=== PATIENT | male | born 1960 | race Caucasian/White ===

== ENCOUNTER 2021-12-15 14:18 | Observation (INO) | payer OTHER, MEDICARE ==
[~2021-12-15] VITALS: Ht 175.3 cm; Wt 110.8 kg
[2021-12-15 15:10] LABS: BUN/CREATININE RATIO 15 (0-10)
[2021-12-15 15:57] LABS: HEMOGLOBIN 14.2 gm/dl (14.0-17.5); RED BLOOD COUNT 5.39 M/UL (4.20-5.50); WHITE BLOOD COUNT 7.3 K/UL (4.5-11.0)
[2021-12-15] MEDS ORDERED: TRELEGY ELLIPT1 EACH INH (19:02)
[2021-12-15] MEDS ORDERED: SOTALOL80 MG PO (19:03)
[2021-12-15] MEDS ORDERED: ASPIRIN EC81 MG PO (19:04)
[2021-12-15] MEDS ORDERED: FLECAINIDE ACET50 MG PO (19:05)
[2021-12-15] MEDS ORDERED: SYMBICORT 16010.2 GM INH (19:05)
[2021-12-15] MEDS ORDERED: CARDIZEM30 MG PO (19:05)
[2021-12-15] MEDS ORDERED: ISOSORBIDE MONO60 MG PO (19:06)
[2021-12-15] MEDS ORDERED: PROTONIX40 MG PO (19:07)
[2021-12-15] MEDS ORDERED: NITROGLYCERIN0.4 MG SL (19:07)
[2021-12-15] MEDS ORDERED: ATORVASTATIN CA40 MG PO (19:08)
[2021-12-15] MEDS ORDERED: XARELTO20 MG PO (19:08)
[2021-12-16 02:19] LABS: HEMOGLOBIN 14.7 gm/dl (14.0-17.5); RED BLOOD COUNT 5.59 M/UL (4.20-5.50); WHITE BLOOD COUNT 7.5 K/UL (4.5-11.0)
[2021-12-16 03:27] LABS: BUN/CREATININE RATIO 12 (0-10)
== END 2021-12-16 14:06 | disposition home or self-care (01) ==
LOC: ER1 14:18 → PROG CARE 16:49 → CDU 16:49 → PROG CARE 16:49
PROVIDERS: Emergency Medicine; ADMIT Internal Medicine
DX: I48.21 Permanent atrial fibrillation (principal); I13.0 Hypertensive heart and chronic kidney disease with heart failure and stage 1 through stage 4 chronic kidney disease, or unspecified chronic kidney disease; N18.9 Chronic kidney disease, unspecified; I50.9 Heart failure, unspecified; I25.10 Atherosclerotic heart disease of native coronary artery without angina pectoris; I25.2 Old myocardial infarction; J44.9 Chronic obstructive pulmonary disease, unspecified; E78.5 Hyperlipidemia, unspecified; K21.9 Gastro-esophageal reflux disease without esophagitis; K44.9 Diaphragmatic hernia without obstruction or gangrene; G89.29 Other chronic pain; M19.90 Unspecified osteoarthritis, unspecified site; M48.02 Spinal stenosis, cervical region; M51.34 Other intervertebral disc degeneration, thoracic region; M51.36 Other intervertebral disc degeneration, lumbar region; M84.48XA Pathological fracture, other site, initial encounter for fracture; R51.9 Headache, unspecified; F17.210 Nicotine dependence, cigarettes, uncomplicated; F41.9 Anxiety disorder, unspecified; R49.0 Dysphonia; G47.33 Obstructive sleep apnea (adult) (pediatric); E66.9 Obesity, unspecified; Z68.36 Body mass index [BMI] 36.0-36.9, adult; Z66 Do not resuscitate; Z87.442 Personal history of urinary calculi; Z99.81 Dependence on supplemental oxygen; Z91.19 Patient's noncompliance with other medical treatment and regimen; Z79.82 Long term (current) use of aspirin; Z79.01 Long term (current) use of anticoagulants; Z79.899 Other long term (current) drug therapy; Z88.0 Allergy status to penicillin; V49.40XA Driver injured in collision with unspecified motor vehicles in traffic accident, initial encounter
CPT/HCPCS: ECHO; 36600; 70450; 71045; 71250; 72125; 72128; 72131; 72170; 80053; 81001; 82550; 82553; 82803; 83605; 83735; 83874; 83880; 84100; 84484; 85025; 85610; 85730; 86850; 86900; 86901; 93005; 93306; 94664; 99285; G0378; G0480